=== PATIENT | female | born 1965 ===

== ENCOUNTER 2024-02-04 09:16 | Outpatient (CLI) | payer BC, SELFPAY ==
[2024-02-04 10:17] LABS: Abs Immature Grans 0.02 10^3/uL (0.0-0.06); Absolute Basophil Count 0.06 10^3/uL (0.0-0.2); Absolute Eosinophil Count 0.21 10^3/uL (0.0-0.7); Absolute Monocyte Count 0.25 10^3/uL (0.1-0.8); Absolute Neutrophil Count 3.13 10^3/uL (1.2-6.7); Basophils % 1.1 %; HCT 43.2 % (36.0-46.0); HGB 14.1 g/dL (11.2-15.7); Immature Grans % 0.4 %; Lymphocytes % 30.4 %; MCH 30.3 pg (27.0-33.0); MCHC 32.6 % (32.0-36.0); MCV 93 fL (80-95); MPV 9.5 fL (8.0-11.0); Monocytes % 4.7 %; Neutrophils % 59.4 %; Platelet Count 224 10^3/uL (130-400); RBC 4.65 10^6/uL (3.93-5.22); RDW 12.3 % (11.7-14.6); RDW-SD 42.3 fL; WBC 5.27 10^3/uL (4.4-10.8)
[2024-02-04 10:39] LABS: Total Iron Binding Capacity 324 ug/dL (250-450)
[2024-02-04 10:41] LABS: Hemoglobin A1C 5.9 % (<5.7)
[2024-02-04 11:13] LABS: ALT 24 U/L (14-59); AST 13 U/L (15-37); Albumin 3.9 g/dL (3.4-5.0); Alkaline Phosphatase 76 U/L (46-116); Anion Gap 7.6 mmol/L (3-11); BUN 10 mg/dL (7-18); Bilirubin, Total 0.59 mg/dL (0.2-1.0); CO2 29.4 mmol/L (21.0-32.0); CREATININE 0.8 mg/dL (0.55-1.02); Calcium 9.5 mg/dL (8.5-10.1); Calculated LDL 161 mg/dL (<100); Chloride 105 mmol/L (98-107); Cholesterol 263 mg/dL (<200); Estimated GFR 85.89 (mL/min/1.73m2); Ferritin 349 ng/mL (8-252); Glucose 111 mg/dL (74-106); HDL Cholesterol 73 mg/dL (40-60); Magnesium 2.3 mg/dL (1.8-2.4); Sodium 142 mmol/L (136-145); TSH 1.41 uIU/mL (0.36-3.74); Total Protein 7.2 g/dL (6.4-8.2); Triglyceride 147 mg/dL (<150); Vitamin B12 376 pg/mL (193-986); Vitamin D 25 Total 44.4 ng/mL (30-100)
[2024-02-04 11:24] LABS: Folate > 20.0 ng/mL (8.6-20.0)
[2024-02-04 14:17] LABS: C-Reactive Protein < 0.50 mg/dL (<or=0.5)
[2024-02-04 17:53] LABS: T3,Free 3.7 pg/mL (2.8-5.3)
[2024-02-04 19:03] LABS: FSH 90.6 mIU/mL (See Note); LH 39.3 mIU/mL (See Note)
[2024-02-04 22:45] LABS: Homocysteine 9.9 umol/L (5.0-13.9)
[2024-02-06 11:22] LABS: Lipoprotein (a) 42 nmol/L (<75)
[2024-02-07 12:41] LABS: Apolipoprotein A1, S 178 mg/dL (>=140); Apolipoprotein B, S 115 mg/dL (See Comment); Apolipoprotein B/A 1 ratio 0.6 (See Comment)
[2024-02-10 14:46] LABS: Dehydroepiandrosterone (DHEA) 3.8 ng/mL (<6.0)
== END 2024-02-04 09:17 | disposition home or self-care (01) ==
LOC: LBO 09:20
PROVIDERS: PCP Naturopath; Visit Provider Naturopath
DX: E78.5 Hyperlipidemia, unspecified (principal); R00.2 Palpitations; R53.83 Other fatigue; N95.1 Menopausal and female climacteric states; E55.9 Vitamin D deficiency, unspecified; I10 Essential (primary) hypertension
CPT/HCPCS: 36415; 80053; 80061; 82172; 82306; 83090; 83695; 82607; 82626; 82728; 82746; 83001; 83002; 83036; 83550; 83735; 84439; 84443; 84481; 85025; 86140

== ENCOUNTER 2024-09-01 14:42 | Outpatient (REF) | payer BC, SELFPAY ==
[2024-09-01 16:11] LABS: Bilirubin Negative (Negative); Blood Small (Negative); Clarity Clear (Clear); Glucose Negative (Negative); Ketones Negative (Negative); Leukocyte Esterase Small (Negative); Nitrite Negative (Negative); Specific Gravity <= 1.005 (1.005-1.025); Urobilinogen 0.2 mg/dL (Up to 0.2); pH 5.5 (5-8)
[2024-09-01 16:21] LABS: Bacteria Rare HPF (Negative); C & S Indicated? Yes; Casts Negative LPF (Negative); Crystals Negative HPF (Negative); Epithelial Cells Rare HPF (Negative); Mucus Negative (Negative); RBC 0-2 HPF (0-2)
== END 2024-09-01 14:43 | disposition home or self-care (01) ==
LOC: LBN 14:42
PROVIDERS: PCP Naturopath; Visit Provider Naturopath
DX: R30.0 Dysuria (principal)
CPT/HCPCS: 87077; 81003; 81015; 87086; 87186